=== PATIENT | male | born 1945 | race Caucasian/White ===

== ENCOUNTER 2017-12-26 10:31 | Inpatient (IN) ==
[2017-12-26] MEDS ORDERED: DEXTROSE 50% 25 GM/50 ML SYRINGE IV ONE (14:19)
[2017-12-26] MEDS ORDERED: DEXTROSE 5% NACL 0.45% 1,000 ML IV SCH (14:30)
[2017-12-26 14:34] LABS: Basophils % 0.5 % (0.0-0.8); Eosinophils # 0.2 10*3/uL (0.0-0.87); Eosinophils % 2.6 % (0.00-10.9); Hematocrit 30.4 VOL% (42.0-52.0); Hemoglobin 8.8 GM/DL (14.0-18.0); Immature Granulocytes % 0.3 %; Immature Granulocytes Absolute 0.03 #; Lymphocytes # 0.9 10*3/uL (1.4-4.0); Lymphocytes % 10.9 % (21.2-54.2); Mean Corpuscular HGB Conc 28.9 GM/DL (32-36); Mean Corpuscular Hemoglobin 21 PG (27-34); Mean Platelet Volume 10.1 FL (9.6-12.0); Monocytes # 0.9 10*3/uL (0.11-0.8); Monocytes % 10.6 % (1.7-12.7); Neutrophils # 6.5 10*3/uL (1.4-7.4); Neutrophils % 75.1 % (38.7-73.9); Platelet Count 367 T/CUMM (130-400); Red Blood Count 4.11 MC/CUMM (3.8-5.5); Red Cell Distribution Width 17.2 % (9.3-17.3); White Blood Count 8.6 T/CUMM (4-12)
[2017-12-26 14:40] LABS: INR 1.2; PT Patient Result 12.6 SECS
[2017-12-26 14:53] LABS: Alanine Aminotransferase 20 U/L (16-61); Albumin 3.5 G/DL (3.4-5.0); Alkaline Phosphatase 77 U/L (45-117); Aspartate Amino Transferase 15 U/L (0-37); Blood Urea Nitrogen 40 MG/DL (7-18); Calcium 9.4 MG/DL (8.5-10.1); Glucose 61 MG/DL (74-106); Osmolality,Calculated 293.8 MOS/KG (273-304); Potassium 4.2 MMOL/L (3.5-5.1); Sodium 144 MMOL/L (136-145); Total Protein 7.1 G/DL (6.4-8.3)
[2017-12-26 14:55] LABS: Lactic Acid 7.1 MMOL/L (0.4-2.0)
[2017-12-26] MEDS ORDERED: VANCOMYCIN INJ 1,000 MG in SODIUM CHLORIDE 0.9% 250 ML IV STA (15:03)
[2017-12-26] MEDS ORDERED: VANCOMYCIN 1,000 MG VIAL ONE (15:21)
[2017-12-26 17:03] LABS: Sedimentation Rate-Westergren 25 MM/HR (0-20)
[2017-12-26] MEDS ORDERED: ONDANSETRON 4 MG/2 ML VIAL IV PRN (17:18)
[2017-12-26] MEDS ORDERED: DEXTROSE 50% 25 GM/50 ML VIAL IV PRN (17:18)
[2017-12-26] MEDS ORDERED: GLUCAGON 1 MG VIAL IM PRN (17:18)
[2017-12-26] MEDS: INSULIN REGULAR 100 UNIT/ML SUBCUT SCH ×2 (19:33→23:13)
[2017-12-26 19:39] LABS: Thyroid Stimulating Hormone 3.13 uIU/ml (0.358-3.74)
[2017-12-26] MEDS: SODIUM CHLORIDE 0.9% 1,000 ML IV SCH (20:37)
[2017-12-26] MEDS: VANCOMYCIN INJ 1,250 MG in SODIUM CHLORIDE 0.9% 250 ML IV SCH (20:39)
[2017-12-26] MEDS: NEBIVOLOL 5 MG TABLET PO SCH (20:44)
[2017-12-26] MEDS ORDERED: ENOXAPARIN 30 MG/0.3 ML SYRINGE SUBCUT SCH (21:00)
[2017-12-26 22:45] LABS: Amorphous Crystals,Urine Occasional /HPF (Few); Apearance,Urine CLOUDY (Clear); Bilirubin,Urine Negative (Negative); Glucose,Urine (UA) 50 mg/dL (Negative); Ketones,Urine Negative (Negative); Nitrite,Urine Negative (Negative); Protein,Urine 100 MG/DL; RBC,Urine 3472 /HPF (0-4); Urine Urobilinogen < 2.0 EU/DL (0.2-1.0); WBC,Urine 175 /HPF (0-6)
[2017-12-26 22:46] LABS: Blood, Urine MANY mg/dL (Negative); Urine Color Brown (Yellow)
[2017-12-26] MEDS: PIPERACILLIN/TAZOBACTAM 3.375 MG in SODIUM CHLORIDE 0.9% 100 ML IV SCH (22:55)
[2017-12-27] MEDS: MORPHINE 2 MG/1 ML SYRINGE IV PRN (00:04)
[2017-12-27] MEDS: PIPERACILLIN/TAZOBACTAM 3.375 MG in SODIUM CHLORIDE 0.9% 100 ML IV SCH ×3 (05:13→23:33)
[2017-12-27] MEDS: INSULIN REGULAR 100 UNIT/ML SUBCUT SCH ×3 (05:13→17:14)
[2017-12-27 05:56] LABS: Basophils % 0.4 % (0.0-0.8); Eosinophils # 0.5 10*3/uL (0.0-0.87); Eosinophils % 6.4 % (0.00-10.9); Hematocrit 26.8 VOL% (42.0-52.0); Hemoglobin 7.9 GM/DL (14.0-18.0); Immature Granulocytes % 0.4 %; Immature Granulocytes Absolute 0.03 #; Lymphocytes # 0.5 10*3/uL (1.4-4.0); Lymphocytes % 6.9 % (21.2-54.2); Mean Corpuscular HGB Conc 29.5 GM/DL (32-36); Mean Corpuscular Hemoglobin 21 PG (27-34); Mean Corpuscular Volume 72.6 FL (87-102); Mean Platelet Volume 10.3 FL (9.6-12.0); Monocytes # 0.9 10*3/uL (0.11-0.8); Monocytes % 12.1 % (1.7-12.7); Neutrophils # 5.4 10*3/uL (1.4-7.4); Neutrophils % 73.8 % (38.7-73.9); Platelet Count 314 T/CUMM (130-400); Red Blood Count 3.69 MC/CUMM (3.8-5.5); White Blood Count 7.3 T/CUMM (4-12)
[2017-12-27 06:27] LABS: Albumin 2.9 G/DL (3.4-5.0); Bilirubin,Total 1.1 MG/DL (0.2-1.0); Calcium 8.2 MG/DL (8.5-10.1); Osmolality,Calculated 289.1 MOS/KG (273-304); Potassium 3.8 MMOL/L (3.5-5.1); Total Protein 5.9 G/DL (6.4-8.3)
[2017-12-27 06:35] LABS: Risk Ratio 2.72; VLDL CHOLESTEROL 15.6 MG/DL
[2017-12-27] MEDS ORDERED: LIDOCAINE 1% 5 ML VIAL ONE (08:53)
[2017-12-27] MEDS: VANCOMYCIN INJ 1,250 MG in SODIUM CHLORIDE 0.9% 250 ML IV SCH ×2 (09:10→21:52)
[2017-12-27] MEDS ORDERED: FAMOTIDINE 20 MG/2 ML VIAL IV ONE ×2 (09:33→09:45)
[2017-12-27] MEDS ORDERED: DEXTROSE 50% 25 GM/50 ML VIAL IV PRN (10:21)
[2017-12-27] MEDS ORDERED: GLUCAGON 1 MG VIAL IM PRN (10:21)
[2017-12-27] MEDS ORDERED: fentaNYL 100 MCG/2 ML VIAL ONE (10:34)
[2017-12-27] MEDS ORDERED: ONDANSETRON 4 MG/2 ML VIAL ONE (10:34)
[2017-12-27] MEDS ORDERED: SODIUM CHLORIDE 0.9% 100 ML IV ONE (10:34)
[2017-12-27] MEDS ORDERED: MIDAZOLAM 2 MG/2 ML VIAL ONE (10:34)
[2017-12-27] MEDS ORDERED: PROPOFOL 200 MG/20 ML VIAL IV ONE (10:34)
[2017-12-27] MEDS ORDERED: ENOXAPARIN 40 MG/0.4 ML SYRINGE SUBCUT SCH (11:00)
[2017-12-27] MEDS ORDERED: SODIUM CHLORIDE 0.9% 1,000 ML IV PRN (11:55)
[2017-12-27] MEDS: SODIUM CHLORIDE 0.9% 1,000 ML IV SCH (15:19)
[2017-12-27] MEDS: NEBIVOLOL 5 MG TABLET PO SCH (21:04)
[2017-12-27] MEDS: ENOXAPARIN 40 MG/0.4 ML SYRINGE SUBCUT SCH (21:04)
[2017-12-27] MEDS: PIPERACILLIN/TAZOBACTAM 3,375 MG in SODIUM CHLORIDE 0.9% 100 ML IV SCH (23:59)
[2017-12-28] MEDS: MORPHINE 2 MG/1 ML SYRINGE IV PRN (00:50)
[2017-12-28] MEDS: INSULIN REGULAR 100 UNIT/ML SUBCUT SCH ×4 (00:51→17:12)
[2017-12-28 05:14] LABS: Basophils % 0.6 % (0.0-0.8); Eosinophils # 0.6 10*3/uL (0.0-0.87); Eosinophils % 9.7 % (0.00-10.9); Hematocrit 31.1 VOL% (42.0-52.0); Hemoglobin 9.4 GM/DL (14.0-18.0); Immature Granulocytes % 0.3 %; Immature Granulocytes Absolute 0.02 #; Lymphocytes # 0.6 10*3/uL (1.4-4.0); Mean Corpuscular HGB Conc 30.2 GM/DL (32-36); Mean Corpuscular Hemoglobin 23 PG (27-34); Mean Corpuscular Volume 75.5 FL (87-102); Mean Platelet Volume 10.6 FL (9.6-12.0); Monocytes # 0.9 10*3/uL (0.11-0.8); Monocytes % 14.3 % (1.7-12.7); Neutrophils # 4.1 10*3/uL (1.4-7.4); Neutrophils % 65.1 % (38.7-73.9); Platelet Count 263 T/CUMM (130-400); Red Blood Count 4.12 MC/CUMM (3.8-5.5); Red Cell Distribution Width 17.8 % (9.3-17.3); White Blood Count 6.3 T/CUMM (4-12)
[2017-12-28 05:42] LABS: Calcium 7.8 MG/DL (8.5-10.1); Osmolality,Calculated 291.1 MOS/KG (273-304); Potassium 4.4 MMOL/L (3.5-5.1)
[2017-12-28] MEDS: SODIUM CHLORIDE 0.9% 1,000 ML IV SCH ×3 (06:08→17:41)
[2017-12-28] MEDS: PIPERACILLIN/TAZOBACTAM 3,375 MG in SODIUM CHLORIDE 0.9% 100 ML IV SCH ×3 (07:03→23:32)
[2017-12-28] MEDS: VANCOMYCIN INJ 1,250 MG in SODIUM CHLORIDE 0.9% 250 ML IV SCH ×2 (11:16→21:22)
[2017-12-28] MEDS ORDERED: CHLORHEXIDINE 4% SOLN 118 ML BOTTLE TOP ONE (13:19)
[2017-12-28] MEDS: SODIUM HYPOCHLORITE 0.25% IRRIG 473 ML BOTTLE TOP SCH (15:35)
[2017-12-28] MEDS: NEBIVOLOL 5 MG TABLET PO SCH (21:22)
[2017-12-28] MEDS: ENOXAPARIN 40 MG/0.4 ML SYRINGE SUBCUT SCH (21:22)
[2017-12-29] MEDS: INSULIN REGULAR 100 UNIT/ML SUBCUT SCH ×4 (00:15→17:26)
[2017-12-29 05:19] LABS: Basophils % 0.5 % (0.0-0.8); Eosinophils # 0.6 10*3/uL (0.0-0.87); Eosinophils % 9.3 % (0.00-10.9); Hematocrit 34.1 VOL% (42.0-52.0); Hemoglobin 10.6 GM/DL (14.0-18.0); Immature Granulocytes % 0.5 %; Immature Granulocytes Absolute 0.03 #; Lymphocytes # 0.7 10*3/uL (1.4-4.0); Lymphocytes % 11.3 % (21.2-54.2); Mean Corpuscular HGB Conc 31.1 GM/DL (32-36); Mean Corpuscular Hemoglobin 23 PG (27-34); Mean Corpuscular Volume 73.7 FL (87-102); Mean Platelet Volume 10.2 FL (9.6-12.0); Monocytes % 15.6 % (1.7-12.7); Neutrophils # 4.1 10*3/uL (1.4-7.4); Neutrophils % 62.8 % (38.7-73.9); Platelet Count 286 T/CUMM (130-400); Red Blood Count 4.63 MC/CUMM (3.8-5.5); Red Cell Distribution Width 18.2 % (9.3-17.3); White Blood Count 6.5 T/CUMM (4-12)
[2017-12-29] MEDS: SODIUM CHLORIDE 0.9% 1,000 ML IV SCH ×2 (05:40→06:02)
[2017-12-29 05:52] LABS: Calcium 8.3 MG/DL (8.5-10.1); Potassium 4.3 MMOL/L (3.5-5.1)
[2017-12-29 06:03] LABS: Band Neutrophils 1 % (0-10); Eosinophils 5 % (0-10); Lymphocytes 16 % (20-55); Platelet Estimate Normal; Segmented Neutrophils 73 % (50-85); Total Cells Counted 100
[2017-12-29 06:04] LABS: Microcytosis 1+; Polychromasia Slight
[2017-12-29] MEDS ORDERED: SKIN HEALING OINT (AQUAPHOR) 50 GM TUBE TOP PRN (08:57)
[2017-12-29] MEDS: PIPERACILLIN/TAZOBACTAM 3,375 MG in SODIUM CHLORIDE 0.9% 100 ML IV SCH (09:14)
[2017-12-29] MEDS ORDERED: VANCOMYCIN INJ 1,250 MG in SODIUM CHLORIDE 0.9% 250 ML IV SCH (10:00)
[2017-12-29] MEDS: SODIUM HYPOCHLORITE 0.25% IRRIG 473 ML BOTTLE TOP SCH (11:21)
[2017-12-29] MEDS: ENOXAPARIN 40 MG/0.4 ML SYRINGE SUBCUT SCH (21:16)
[2017-12-29] MEDS: NEBIVOLOL 5 MG TABLET PO SCH (21:16)
[2017-12-29] MEDS: SULFAMETHOX/TRIMETHOPRIM 800-160 MG TABLET PO SCH (21:16)
[2017-12-30] MEDS: INSULIN REGULAR 100 UNIT/ML SUBCUT SCH ×3 (00:31→12:08)
[2017-12-30 06:18] LABS: Basophils % 0.5 % (0.0-0.8); Eosinophils # 0.6 10*3/uL (0.0-0.87); Eosinophils % 8.8 % (0.00-10.9); Hematocrit 32.1 VOL% (42.0-52.0); Hemoglobin 9.5 GM/DL (14.0-18.0); Immature Granulocytes % 0.3 %; Immature Granulocytes Absolute 0.02 #; Lymphocytes # 0.7 10*3/uL (1.4-4.0); Lymphocytes % 10.8 % (21.2-54.2); Mean Corpuscular HGB Conc 29.6 GM/DL (32-36); Mean Corpuscular Hemoglobin 22 PG (27-34); Mean Corpuscular Volume 75.7 FL (87-102); Monocytes # 1.1 10*3/uL (0.11-0.8); Monocytes % 16.9 % (1.7-12.7); Neutrophils % 62.7 % (38.7-73.9); Platelet Count 249 T/CUMM (130-400); Red Blood Count 4.24 MC/CUMM (3.8-5.5); Red Cell Distribution Width 18.4 % (9.3-17.3); White Blood Count 6.4 T/CUMM (4-12)
[2017-12-30 06:44] LABS: Band Neutrophils 5 % (0-10); Eosinophils 10 % (0-10); Lymphocytes 6 % (20-55); Metamyelocytes 1 %; Segmented Neutrophils 70 % (50-85); Total Cells Counted 100
[2017-12-30 06:47] LABS: Anisocytosis 1+
[2017-12-30 06:48] LABS: Acanthocytes 1+
[2017-12-30 06:49] LABS: Calcium 8.3 MG/DL (8.5-10.1); Hypochromasia 1+; Osmolality,Calculated 290.8 MOS/KG (273-304); Ovalocytes 2+; Platelet Estimate Normal; Potassium 3.7 MMOL/L (3.5-5.1)
[2017-12-30 07:45] VITALS: BP 142/84
[2017-12-30] MEDS: SULFAMETHOX/TRIMETHOPRIM 800-160 MG TABLET PO SCH (10:05)
[2017-12-30] MEDS: SODIUM HYPOCHLORITE 0.25% IRRIG 473 ML BOTTLE TOP SCH (10:05)
== END 2017-12-30 13:49 | disposition home health service (06) | DRG 264 ==
LOC: N.ED 10:31 → N.EDINP 15:30 → SUATTDRO 15:30 → N.EDINP 16:45 → N.3E 17:00
PROVIDERS: ADMIT Internal Medicine

== ENCOUNTER 2019-12-23 14:39 | Inpatient (IN) ==
[2019-12-23 15:15] LABS: Immature Granulocytes % 0.3 %; Immature Granulocytes Absolute 0.02 #
[2019-12-23 15:28] LABS: Basophils % 0.6 % (0.0-0.8); Eosinophils # 0.2 10*3/uL (0.0-0.87); Eosinophils % 2.7 % (0.00-10.9); Hematocrit 31.5 VOL% (42.0-52.0); Hemoglobin 8.8 GM/DL (14.0-18.0); Lymphocytes # 0.6 10*3/uL (1.4-4.0); Mean Corpuscular HGB Conc 27.9 GM/DL (32-36); Mean Platelet Volume 11.1 FL (9.6-12.0); Monocytes % 11.1 % (1.7-12.7); Neutrophils % 76.3 % (38.7-73.9); Platelet Count 284 T/CUMM (130-400); Red Cell Distribution Width 18.4 % (9.3-17.3); White Blood Count 6.3 T/CUMM (4-12)
[2019-12-23 15:29] LABS: Albumin 3.8 G/DL (3.4-5.0); Bilirubin,Total 0.6 MG/DL (0.2-1.0); Calcium 8.8 MG/DL (8.5-10.1); Osmolality,Calculated 286.7 MOS/KG (273-304); Total Protein 7.3 G/DL (6.4-8.3)
[2019-12-23 16:10] LABS: Sickle Cells Slight
[2019-12-23 16:11] LABS: Anisocytosis 3+; Burr Cells Slight; Hypochromasia 1+
[2019-12-23 16:27] LABS: INR 1.1; PT Patient Result 12.4 SECS (9.6-12.2); Partial Thromboplastin Time 26.2 SECS (20.8-36.0)
[2019-12-23] MEDS ORDERED: ASPIRIN 325 MG TABLET PO STA (18:32)
[2019-12-23] MEDS ORDERED: ALBUTEROL/IPRATROPIUM 3 ML NEB RESP TX STA (18:32)
[2019-12-23] MEDS ORDERED: ONDANSETRON 4 MG/2 ML VIAL IV STA (18:32)
[2019-12-23] MEDS ORDERED: MORPHINE 4 MG/1 ML VIAL IV STA (18:32)
[2019-12-23] MEDS ORDERED: FUROSEMIDE 100 MG/10 ML VIAL IV STA (18:32)
[2019-12-23] MEDS ORDERED: NITROGLYCERIN 2% OINT 1 INCH/GM PACK TOP STA (18:32)
[2019-12-23] MEDS ORDERED: ONDANSETRON 4 MG/2 ML VIAL IV PRN (19:16)
[2019-12-23] MEDS ORDERED: DOCUSATE SODIUM 100 MG CAPSULE PO PRN (19:16)
[2019-12-23] MEDS ORDERED: DEXTROSE 10% 250 ML BAG IV PRN (19:20)
[2019-12-23] MEDS ORDERED: GLUCAGON 1 MG VIAL IM PRN (19:20)
[2019-12-23 19:25] LABS: Apearance,Urine Slightly Hazy (Clear); Bacteria,Urine Occasional /HPF (Few); Bilirubin,Urine Negative (Negative); Blood, Urine Large mg/dL (Negative); Glucose,Urine (UA) Negative (Negative); Ketones,Urine Negative (Negative); Mucus,Urine Occasional /LPF (Occasional); Nitrite,Urine Negative (Negative); Protein,Urine 30 MG/DL; RBC,Urine 709 /HPF (0-4); Squamous Epithelial Cell,Urine Occasional /HPF (0-10); Urine Color Yellow (Yellow); Urine Specific Gravity 1.016 (1.001-1.035); Urine Urobilinogen < 2.0 EU/DL (0.2-1.0); WBC,Urine 3 /HPF (0-6)
[2019-12-23 19:40] LABS: Barbiturates Screen,Urine Negative (Negative); Benzodiazepines Screen,Urine Negative (Negative); Cannabinoid Screen,Urine Negative (Negative); Opiate Screen,Urine Negative (Negative); Phencyclidine Screen,Urine Negative (Negative)
[2019-12-23] MEDS ORDERED: ENOXAPARIN 40 MG/0.4 ML SYRINGE SUBCUT SCH (21:00)
[2019-12-23] MEDS: INSULIN REGULAR 100 UNIT/ML SUBCUT SCH (22:01)
[2019-12-23 22:44] LABS: INR 1.2; PT Patient Result 12.8 SECS (9.6-12.2)
[2019-12-23] MEDS: POTASSIUM CHLORIDE 20 MEQ TABLET PO SCH (23:25)
[2019-12-23] MEDS: FUROSEMIDE 40 MG/4 ML VIAL IV SCH (23:27)
[2019-12-24] MEDS ORDERED: PNEUMOCOCCAL VACCINE (13 VALENT) 0.5 ML SYRINGE IM ONE (02:07)
[2019-12-24] MEDS ORDERED: IBUPROFEN 400 MG TABLET PO PRN (02:19)
[2019-12-24 05:43] LABS: Basophils # 0.1 10*3/uL (0.0-0.2); Basophils % 1.9 % (0.0-0.8); Eosinophils # 0.3 10*3/uL (0.0-0.87); Eosinophils % 5.6 % (0.00-10.9); Hematocrit 28.9 VOL% (42.0-52.0); Hemoglobin 8.1 GM/DL (14.0-18.0); Immature Granulocytes % 0.4 %; Immature Granulocytes Absolute 0.02 #; Lymphocytes # 0.6 10*3/uL (1.4-4.0); Lymphocytes % 11.2 % (21.2-54.2); Mean Corpuscular Volume 69.6 FL (87-102); Mean Platelet Volume 10.8 FL (9.6-12.0); Monocytes % 14.7 % (1.7-12.7); Neutrophils % 66.2 % (38.7-73.9); Platelet Count 248 T/CUMM (130-400); Red Blood Count 4.15 MC/CUMM (3.8-5.5); Red Cell Distribution Width 18.2 % (9.3-17.3); White Blood Count 5.7 T/CUMM (4-12)
[2019-12-24] MEDS: HYDROCORTISONE 1% CREAM 28 GM TUBE TOP PRN ×2 (05:45→22:54)
[2019-12-24 05:46] LABS: Calcium 8.5 MG/DL (8.5-10.1); Osmolality,Calculated 292.4 MOS/KG (273-304); Thyroid Stimulating Hormone 1.91 uIU/ml (0.358-3.74)
[2019-12-24 05:50] LABS: % Iron Saturation 3.3 % (18-50); Ferritin 5.4 ng/ml (26-388)
[2019-12-24 05:54] LABS: Elliptocytes Few; Hypochromasia 1+; Platelet Estimate Adequate
[2019-12-24 06:15] LABS: Folate 10.5 NG/ML (5.4-24.0)
[2019-12-24 06:15] LABS: Sedimentation Rate-Westergren 6 MM/HR (0-20)
[2019-12-24 07:50] LABS: Vitamin B12 465 PG/ML (211-911)
[2019-12-24] MEDS ORDERED: SERTRALINE 25 MG TABLET PO ONE (09:00)
[2019-12-24] MEDS: INSULIN REGULAR 100 UNIT/ML SUBCUT SCH ×4 (09:24→23:00)
[2019-12-24] MEDS: DILTIAZEM CD 180 MG CAPSULE PO SCH (09:24)
[2019-12-24] MEDS: POTASSIUM CHLORIDE 20 MEQ TABLET PO SCH ×2 (09:25→22:45)
[2019-12-24] MEDS: ASPIRIN EC 325 MG TABLET PO SCH (09:25)
[2019-12-24] MEDS: FUROSEMIDE 40 MG/4 ML VIAL IV SCH ×2 (09:25→22:46)
[2019-12-24] MEDS: NITROGLYCERIN 0.2 MG/HR PATCH TRANSDERM SCH (09:26)
[2019-12-24 10:15] LABS: Hemoglobin A1 (Alkaline) 98.1 % (96.5-98.5); Hemoglobin A2 (Alkaline) 1.9 % (1.5-3.5)
[2019-12-24 12:42] LABS: INR 1.2; PT Patient Result 13.2 SECS (9.6-12.2); Partial Thromboplastin Time 27.5 SECS (20.8-36.0)
[2019-12-24] MEDS: HEPARIN DRIP 25,000 UNITS/500 ML PREMIX IV SCH (13:00)
[2019-12-24] MEDS ORDERED: GLUCAGON 1 MG VIAL IM PRN (13:26)
[2019-12-24] MEDS ORDERED: DEXTROSE 50% 25 GM/50 ML VIAL IV PRN (13:26)
[2019-12-24 20:02] LABS: INR 1.2; PT Patient Result 13.3 SECS (9.6-12.2); Partial Thromboplastin Time 39.5 SECS (20.8-36.0)
[2019-12-24] MEDS ORDERED: HEPARIN 5,000 UNIT/1 ML VIAL IV ONE (20:21)
[2019-12-24] MEDS: SERTRALINE 25 MG TABLET PO SCH (22:42)
[2019-12-24] MEDS: FERROUS SULFATE ER 140 MG TABLET PO SCH (22:42)
[2019-12-24] MEDS: ACETYLCYSTEINE 600 MG CAPSULE PO SCH (22:43)
[2019-12-25 05:05] LABS: Calcium 8.5 MG/DL (8.5-10.1); Osmolality,Calculated 288.3 MOS/KG (273-304)
[2019-12-25 05:41] LABS: Basophils # 0.1 10*3/uL (0.0-0.2); Basophils % 1.5 % (0.0-0.8); Eosinophils # 0.3 10*3/uL (0.0-0.87); Hematocrit 28.5 VOL% (42.0-52.0); Immature Granulocytes % 0.6 %; Immature Granulocytes Absolute 0.03 #; Lymphocytes # 0.7 10*3/uL (1.4-4.0); Lymphocytes % 13.6 % (21.2-54.2); Mean Corpuscular HGB Conc 28.4 GM/DL (32-36); Mean Corpuscular Volume 68.3 FL (87-102); Mean Platelet Volume 10.6 FL (9.6-12.0); Monocytes % 14.4 % (1.7-12.7); Neutrophils % 63.9 % (38.7-73.9); Platelet Count 241 T/CUMM (130-400); Red Blood Count 4.17 MC/CUMM (3.8-5.5); Red Cell Distribution Width 18.2 % (9.3-17.3); White Blood Count 5.3 T/CUMM (4-12)
[2019-12-25 05:45] LABS: Hemoglobin 8.1 GM/DL (14.0-18.0)
[2019-12-25 05:50] LABS: Hypochromasia 1+; Ovalocytes Slight; Platelet Estimate Adequate
[2019-12-25] MEDS: INSULIN REGULAR 100 UNIT/ML SUBCUT SCH ×4 (08:40→22:35)
[2019-12-25] MEDS: NITROGLYCERIN 0.2 MG/HR PATCH TRANSDERM SCH (08:44)
[2019-12-25] MEDS: FERROUS SULFATE ER 140 MG TABLET PO SCH ×2 (08:44→21:17)
[2019-12-25] MEDS: ACETYLCYSTEINE 600 MG CAPSULE PO SCH ×2 (08:46→21:18)
[2019-12-25] MEDS: DILTIAZEM CD 180 MG CAPSULE PO SCH (08:46)
[2019-12-25] MEDS: POTASSIUM CHLORIDE 20 MEQ TABLET PO SCH ×2 (08:47→21:18)
[2019-12-25] MEDS: ASPIRIN EC 325 MG TABLET PO SCH (08:47)
[2019-12-25] MEDS: FUROSEMIDE 40 MG/4 ML VIAL IV SCH ×2 (09:55→21:19)
[2019-12-25] MEDS ORDERED: MAGNESIUM SULF RIDER 2 GM in PREMIX 1 EACH IV ONE (11:07)
[2019-12-25] MEDS ORDERED: POTASSIUM CHLORIDE 20 MEQ TABLET PO ONE (11:07)
[2019-12-25 11:41] LABS: INR 1.2; PT Patient Result 12.6 SECS (9.6-12.2); Partial Thromboplastin Time 32.6 SECS (20.8-36.0)
[2019-12-25] MEDS ORDERED: SKIN HEALING OINT (AQUAPHOR) 50 GM TUBE TOP PRN (11:50)
[2019-12-25] MEDS ORDERED: POTASSIUM CHLORIDE 20 MEQ TABLET PO PRN (11:54)
[2019-12-25] MEDS ORDERED: MAGNESIUM SULF RIDER 2 GM in PREMIX 1 EACH IV PRN (11:54)
[2019-12-25] MEDS ORDERED: MAGNESIUM SULF RIDER 4 GM in PREMIX 1 EACH IV PRN (11:54)
[2019-12-25] MEDS: carvediloL 6.25 MG TABLET PO SCH ×2 (13:10→17:43)
[2019-12-25] MEDS: HEPARIN DRIP 25,000 UNITS/500 ML PREMIX IV SCH (14:56)
[2019-12-25] MEDS: SERTRALINE 25 MG TABLET PO SCH (21:18)
[2019-12-26 04:56] LABS: Basophils # 0.1 10*3/uL (0.0-0.2); Basophils % 0.9 % (0.0-0.8); Eosinophils # 0.3 10*3/uL (0.0-0.87); Eosinophils % 6.3 % (0.00-10.9); Hematocrit 27.7 VOL% (42.0-52.0); Immature Granulocytes % 0.4 %; Immature Granulocytes Absolute 0.02 #; Lymphocytes # 0.8 10*3/uL (1.4-4.0); Lymphocytes % 13.8 % (21.2-54.2); Mean Corpuscular HGB Conc 28.2 GM/DL (32-36); Mean Corpuscular Volume 68.6 FL (87-102); Mean Platelet Volume 11.1 FL (9.6-12.0); Monocytes % 14.6 % (1.7-12.7); Platelet Count 248 T/CUMM (130-400); Red Blood Count 4.04 MC/CUMM (3.8-5.5); Red Cell Distribution Width 18.2 % (9.3-17.3); White Blood Count 5.4 T/CUMM (4-12)
[2019-12-26 05:19] LABS: Calcium 8.4 MG/DL (8.5-10.1); Osmolality,Calculated 288.8 MOS/KG (273-304)
[2019-12-26 05:22] LABS: Hypochromasia 1+
[2019-12-26 05:23] LABS: Ovalocytes Slight; Platelet Estimate Adequate
[2019-12-26 05:37] LABS: Risk Ratio 2.59; VLDL CHOLESTEROL 10.6 MG/DL
[2019-12-26] MEDS: INSULIN REGULAR 100 UNIT/ML SUBCUT SCH ×4 (08:26→20:31)
[2019-12-26] MEDS: ASPIRIN EC 325 MG TABLET PO SCH (08:32)
[2019-12-26] MEDS: carvediloL 6.25 MG TABLET PO SCH ×2 (08:32→16:51)
[2019-12-26] MEDS: POTASSIUM CHLORIDE 20 MEQ TABLET PO SCH ×2 (08:33→20:31)
[2019-12-26] MEDS: NITROGLYCERIN 0.2 MG/HR PATCH TRANSDERM SCH (08:33)
[2019-12-26] MEDS: ACETYLCYSTEINE 600 MG CAPSULE PO SCH ×2 (08:33→20:34)
[2019-12-26] MEDS: FERROUS SULFATE ER 140 MG TABLET PO SCH ×2 (08:34→20:31)
[2019-12-26] MEDS: FUROSEMIDE 40 MG/4 ML VIAL IV SCH ×2 (08:36→20:34)
[2019-12-26] MEDS ORDERED: diphenhydrAMINE CAP 25 MG CAPSULE PO ONE (09:00)
[2019-12-26] MEDS ORDERED: DIAZEPAM 5 MG TABLET PO ONE (09:00)
[2019-12-26] MEDS ORDERED: HEPARIN/NACL 0.9% 2 UNITS/ML 1,500 ML IV ONE (10:24)
[2019-12-26] MEDS ORDERED: LIDOCAINE 1% 20 ML VIAL ONE (10:24)
[2019-12-26] MEDS: HEPARIN DRIP 25,000 UNITS/500 ML PREMIX IV SCH (12:00)
[2019-12-26] MEDS ORDERED: fentaNYL 100 MCG/2 ML VIAL ONE (12:09)
[2019-12-26] MEDS ORDERED: MIDAZOLAM 2 MG/2 ML VIAL ONE (12:09)
[2019-12-26] MEDS ORDERED: HEPARIN/NACL 0.9% 2 UNITS/ML 500 ML IV ONE (13:30)
[2019-12-26] MEDS ORDERED: SODIUM CHLORIDE 0.9% 1,000 ML IV SCH (14:00)
[2019-12-26] MEDS ORDERED: POTASSIUM CHLORIDE RIDER 10 MEQ in PREMIX 1 EACH IV PRN (14:37)
[2019-12-26] MEDS ORDERED: MAGNESIUM SULF RIDER 2 GM in PREMIX 1 EACH IV PRN (14:37)
[2019-12-26] MEDS: traMADol 50 MG TABLET PO PRN (14:50)
[2019-12-26] MEDS: SERTRALINE 25 MG TABLET PO SCH (20:31)
[2019-12-27 04:54] LABS: Basophils # 0.1 10*3/uL (0.0-0.2); Basophils % 1.2 % (0.0-0.8); Eosinophils # 0.3 10*3/uL (0.0-0.87); Eosinophils % 5.5 % (0.00-10.9); Hematocrit 27.7 VOL% (42.0-52.0); Immature Granulocytes % 0.4 %; Immature Granulocytes Absolute 0.02 #; Lymphocytes # 0.5 10*3/uL (1.4-4.0); Lymphocytes % 10.2 % (21.2-54.2); Mean Corpuscular HGB Conc 27.4 GM/DL (32-36); Mean Corpuscular Volume 69.6 FL (87-102); Mean Platelet Volume 11.1 FL (9.6-12.0); Monocytes % 16.4 % (1.7-12.7); Neutrophils % 66.3 % (38.7-73.9); Platelet Count 225 T/CUMM (130-400); Red Blood Count 3.98 MC/CUMM (3.8-5.5); Red Cell Distribution Width 18.4 % (9.3-17.3); White Blood Count 4.9 T/CUMM (4-12)
[2019-12-27 05:35] LABS: Hemoglobin 7.8 GM/DL (14.0-18.0)
[2019-12-27 05:46] LABS: Calcium 8.2 MG/DL (8.5-10.1); Osmolality,Calculated 291.5 MOS/KG (273-304)
[2019-12-27 05:49] LABS: Eosinophils 5 % (0-10); Hypochromasia 1+; Lymphocytes 9 % (20-55); Platelet Estimate Adequate; Segmented Neutrophils 70 % (50-85); Total Cells Counted 100
[2019-12-27 05:50] LABS: Elliptocytes Few
[2019-12-27] MEDS ORDERED: diphenhydrAMINE CAP 25 MG CAPSULE PO ONE (06:30)
[2019-12-27] MEDS ORDERED: DIAZEPAM 5 MG TABLET PO ONE (06:30)
[2019-12-27] MEDS ORDERED: SODIUM CHLORIDE 0.9% 1,000 ML IV PRN (08:32)
[2019-12-27] MEDS ORDERED: IRON SUCROSE 300 MG in SODIUM CHLORIDE 0.9% 100 ML IV ONE (09:04)
[2019-12-27] MEDS: INSULIN REGULAR 100 UNIT/ML SUBCUT SCH ×4 (10:21→22:00)
[2019-12-27] MEDS: FUROSEMIDE 40 MG/4 ML VIAL IV SCH ×2 (10:58→21:55)
[2019-12-27] MEDS ORDERED: LIDOCAINE 1% 20 ML VIAL ONE (13:02)
[2019-12-27] MEDS ORDERED: HEPARIN/NACL 0.9% 2 UNITS/ML 1,500 ML IV ONE (13:02)
[2019-12-27] MEDS ORDERED: DIAZEPAM 5 MG TABLET ONE (13:33)
[2019-12-27] MEDS ORDERED: diphenhydrAMINE CAP 50 MG CAPSULE ONE (13:33)
[2019-12-27] MEDS: NITROGLYCERIN 0.2 MG/HR PATCH TRANSDERM SCH (13:42)
[2019-12-27] MEDS: carvediloL 6.25 MG TABLET PO SCH ×2 (13:42→21:59)
[2019-12-27] MEDS: POTASSIUM CHLORIDE 20 MEQ TABLET PO SCH ×2 (13:42→21:59)
[2019-12-27] MEDS: ACETYLCYSTEINE 600 MG CAPSULE PO SCH ×2 (13:42→21:59)
[2019-12-27] MEDS: ASPIRIN EC 325 MG TABLET PO SCH (13:42)
[2019-12-27] MEDS: FERROUS SULFATE ER 140 MG TABLET PO SCH ×2 (13:42→21:59)
[2019-12-27] MEDS ORDERED: NITROGLYCERIN DRIP 50 MG/250 ML BOTTLE IV ONE (14:10)
[2019-12-27] MEDS ORDERED: MIDAZOLAM 2 MG/2 ML VIAL ONE (14:11)
[2019-12-27] MEDS ORDERED: HEPARIN 5,000 UNIT/1 ML VIAL ONE ×2 (14:11→14:27)
[2019-12-27] MEDS ORDERED: fentaNYL 100 MCG/2 ML VIAL ONE (14:11)
[2019-12-27 15:01] LABS: Hematocrit 31.7 VOL% (42.0-52.0)
[2019-12-27 15:04] LABS: Hemoglobin 9.1 GM/DL (14.0-18.0)
[2019-12-27] MEDS ORDERED: EPTIFIBATIDE 75 MG/100 ML BOTTLE IV ONE (15:12)
[2019-12-27] MEDS ORDERED: CLOPIDOGREL 300 MG TABLET ONE (15:23)
[2019-12-27] MEDS ORDERED: EPTIFIBATIDE 20,000 MCG/10 ML VIAL ONE (15:31)
[2019-12-27] MEDS ORDERED: SODIUM CHLORIDE 0.9% 1,000 ML IV SCH (16:30)
[2019-12-27] MEDS: SERTRALINE 25 MG TABLET PO SCH (21:59)
[2019-12-27] MEDS: traMADol 50 MG TABLET PO PRN (22:30)
[2019-12-28 08:14] VITALS: BP 114/66
[2019-12-28 08:54] LABS: Albumin 3.1 G/DL (3.4-5.0); Osmolality,Calculated 288.4 MOS/KG (273-304)
[2019-12-28 08:58] LABS: Basophils % 0.7 % (0.0-0.8); Eosinophils # 0.4 10*3/uL (0.0-0.87); Eosinophils % 7.2 % (0.00-10.9); Hematocrit 29.9 VOL% (42.0-52.0); Hemoglobin 8.6 GM/DL (14.0-18.0); Immature Granulocytes % 0.5 %; Immature Granulocytes Absolute 0.03 #; Lymphocytes # 0.6 10*3/uL (1.4-4.0); Lymphocytes % 10.9 % (21.2-54.2); Mean Corpuscular HGB Conc 28.8 GM/DL (32-36); Mean Corpuscular Volume 71.2 FL (87-102); Mean Platelet Volume 12.3 FL (9.6-12.0); Monocytes % 18.1 % (1.7-12.7); Neutrophils % 62.6 % (38.7-73.9); Platelet Count 218 T/CUMM (130-400); Red Cell Distribution Width 19.9 % (9.3-17.3); White Blood Count 5.7 T/CUMM (4-12)
[2019-12-28] MEDS ORDERED: CLOPIDOGREL 75 MG TABLET PO SCH (09:00)
[2019-12-28] MEDS ORDERED: ATORVASTATIN 40 MG TABLET PO SCH (09:00)
[2019-12-28] MEDS ORDERED: ASPIRIN EC 81 MG TABLET PO SCH (09:26)
[2019-12-28] MEDS: NITROGLYCERIN 0.2 MG/HR PATCH TRANSDERM SCH (09:48)
[2019-12-28] MEDS: POTASSIUM CHLORIDE 20 MEQ TABLET PO SCH (09:49)
[2019-12-28] MEDS: carvediloL 6.25 MG TABLET PO SCH (09:49)
[2019-12-28] MEDS: FERROUS SULFATE ER 140 MG TABLET PO SCH (09:49)
[2019-12-28] MEDS: ACETYLCYSTEINE 600 MG CAPSULE PO SCH (09:49)
[2019-12-28] MEDS: INSULIN REGULAR 100 UNIT/ML SUBCUT SCH (09:49)
[2019-12-28] MEDS: FUROSEMIDE 40 MG/4 ML VIAL IV SCH (09:50)
[2019-12-28] MEDS ORDERED: APIXABAN 5 MG TABLET PO SCH (09:56)
[2019-12-28 10:05] LABS: Elliptocytes Few; Eosinophils 7 % (0-10); Hypochromasia 4+; Lymphocytes 4 % (20-55); Microcytosis 3+; Ovalocytes Few; Platelet Estimate Normal; Polychromasia Slight; Segmented Neutrophils 68 % (50-85); Total Cells Counted 100
[2019-12-28] MEDS: ASPIRIN EC 325 MG TABLET PO SCH (11:03)
== END 2019-12-28 13:50 | disposition home or self-care (01) | DRG 246 ==
LOC: N.EDINP 14:39 → N.ED 14:39 → N.TELEN 20:50 → SUATTDRO 12-25 11:14
PROVIDERS: ADMIT Emergency Medicine; ATTEND Hospitalist

== ENCOUNTER 2020-01-04 16:15 | Inpatient (IN) ==
[2020-01-04] MEDS ORDERED: hydrALAZINE 20 MG/1 ML VIAL IV PRN (18:47)
[2020-01-04] MEDS ORDERED: ALBUTEROL 2.5 MG/3 ML NEB RESP TX PRN (18:48)
[2020-01-04] MEDS ORDERED: DEXTROSE 10% 250 ML BAG IV PRN (18:50)
[2020-01-04] MEDS ORDERED: GLUCAGON 1 MG VIAL IM PRN (18:50)
[2020-01-04] MEDS ORDERED: FUROSEMIDE 40 MG/4 ML VIAL IV SCH (19:00)
[2020-01-04 19:59] LABS: Calcium 8.7 MG/DL (8.5-10.1)
[2020-01-04 20:01] LABS: Basophils # 0.1 10*3/uL (0.0-0.2); Basophils % 0.4 % (0.0-0.8); Eosinophils % 0.1 % (0.00-10.9); Hematocrit 33.5 VOL% (42.0-52.0); Hemoglobin 9.5 GM/DL (14.0-18.0); Immature Granulocytes Absolute 0.16 #; Lymphocytes # 0.4 10*3/uL (1.4-4.0); Lymphocytes % 2.7 % (21.2-54.2); Mean Corpuscular HGB Conc 28.4 GM/DL (32-36); Mean Corpuscular Volume 74.6 FL (87-102); Monocytes % 5.7 % (1.7-12.7); Neutrophils % 90.1 % (38.7-73.9); Platelet Count 171 T/CUMM (130-400); Red Blood Count 4.49 MC/CUMM (3.8-5.5); Red Cell Distribution Width 24.3 % (9.3-17.3)
[2020-01-04] MEDS: dilTIAZem Drip 125 MG/125 ML PREMIX IV SCH (20:01)
[2020-01-04] MEDS: INSULIN LISPRO 100 UNIT/ML SUBCUT SCH (20:08)
[2020-01-04 20:22] LABS: Acanthocytes 1+; Anisocytosis Slight; Hypochromasia Slight; Lymphocytes 2 % (20-55); Microcytosis Slight; Segmented Neutrophils 95 % (50-85); Target Cells Slight; Total Cells Counted 100
[2020-01-04] MEDS: carvediloL 6.25 MG TABLET PO SCH (20:35)
[2020-01-04] MEDS: APIXABAN 5 MG TABLET PO SCH (20:35)
[2020-01-04] MEDS: POTASSIUM CHLORIDE 20 MEQ TABLET PO SCH (20:35)
[2020-01-04] MEDS ORDERED: MORPHINE 4 MG/1 ML VIAL IV PRN (20:49)
[2020-01-04] MEDS ORDERED: diphenhydrAMINE CAP 25 MG CAPSULE PO PRN (21:58)
[2020-01-04] MEDS ORDERED: DOCUSATE SODIUM 100 MG CAPSULE PO PRN (21:58)
[2020-01-04] MEDS ORDERED: NICOTINE 21 MG/24 HR PATCH TRANSDERM PRN (21:58)
[2020-01-04] MEDS ORDERED: guaiFENesin/DM ER 600-30 MG TABLET PO PRN (21:58)
[2020-01-04] MEDS ORDERED: ONDANSETRON 4 MG/2 ML VIAL IV PRN (21:58)
[2020-01-04] MEDS ORDERED: ZALEPLON 5 MG CAPSULE PO PRN (21:58)
[2020-01-04] MEDS ORDERED: PROMETHAZINE 25 MG TABLET PO PRN (21:58)
[2020-01-04] MEDS: cefTRIAXone 1,000 MG in SYRINGE 1 EACH IV SCH (22:54)
[2020-01-05 02:04] LABS: Apearance,Urine CLEAR (Clear); Bilirubin,Urine Negative (Negative); Blood, Urine Large mg/dL (Negative); Glucose,Urine (UA) Negative (Negative); Hyaline Casts,Urine 3 /LPF (0-3); Ketones,Urine Negative (Negative); Mucus,Urine Occasional /LPF (Occasional); Nitrite,Urine Negative (Negative); Protein,Urine Negative; RBC,Urine 333 /HPF (0-4); Urine Color Yellow (Yellow); Urine Urobilinogen < 2.0 EU/DL (0.2-1.0); WBC,Urine 5 /HPF (0-6)
[2020-01-05 04:49] LABS: Calcium 8.3 MG/DL (8.5-10.1); Osmolality,Calculated 279.8 MOS/KG (273-304)
[2020-01-05 05:01] LABS: Basophils # 0.1 10*3/uL (0.0-0.2); Basophils % 0.6 % (0.0-0.8); Eosinophils # 0.1 10*3/uL (0.0-0.87); Eosinophils % 0.6 % (0.00-10.9); Hematocrit 32.9 VOL% (42.0-52.0); Immature Granulocytes % 0.3 %; Immature Granulocytes Absolute 0.04 #; Lymphocytes # 0.5 10*3/uL (1.4-4.0); Lymphocytes % 4.2 % (21.2-54.2); Mean Corpuscular HGB Conc 28.6 GM/DL (32-36); Mean Corpuscular Volume 73.8 FL (87-102); Monocytes % 8.4 % (1.7-12.7); Neutrophils % 85.9 % (38.7-73.9); Platelet Count 168 T/CUMM (130-400); Red Blood Count 4.46 MC/CUMM (3.8-5.5); Red Cell Distribution Width 24.4 % (9.3-17.3); White Blood Count 11.7 T/CUMM (4-12)
[2020-01-05 05:02] LABS: Hemoglobin 9.4 GM/DL (14.0-18.0)
[2020-01-05 05:23] LABS: Eosinophils 1 % (0-10); Hypochromasia 1+; Lymphocytes 4 % (20-55); Ovalocytes Slight; Platelet Estimate Adequate; Segmented Neutrophils 88 % (50-85); Total Cells Counted 100
[2020-01-05 07:39] LABS: Risk Ratio 2.27
[2020-01-05] MEDS: FUROSEMIDE 40 MG/4 ML VIAL IV SCH ×2 (09:20→16:47)
[2020-01-05] MEDS: INSULIN LISPRO 100 UNIT/ML SUBCUT SCH ×4 (09:34→20:53)
[2020-01-05] MEDS: carvediloL 6.25 MG TABLET PO SCH ×2 (09:36→20:53)
[2020-01-05] MEDS: PANTOPRAZOLE 40 MG TABLET PO SCH (09:36)
[2020-01-05] MEDS: APIXABAN 5 MG TABLET PO SCH ×2 (09:36→20:53)
[2020-01-05] MEDS: ATORVASTATIN 40 MG TABLET PO SCH (09:36)
[2020-01-05] MEDS: POTASSIUM CHLORIDE 20 MEQ TABLET PO SCH ×2 (09:36→20:52)
[2020-01-05] MEDS: AZITHROMYCIN 250 MG TABLET PO SCH (11:44)
[2020-01-05] MEDS: dilTIAZem Drip 125 MG/125 ML PREMIX IV SCH (18:41)
[2020-01-05] MEDS: cefTRIAXone 1,000 MG in SYRINGE 1 EACH IV SCH (20:51)
[2020-01-05] MEDS: FUROSEMIDE 40 MG TABLET PO SCH (20:53)
[2020-01-06 06:13] LABS: Albumin 3.5 G/DL (3.4-5.0); Bilirubin,Total 0.5 MG/DL (0.2-1.0); Calcium 8.5 MG/DL (8.5-10.1); Osmolality,Calculated 293.1 MOS/KG (273-304)
[2020-01-06 06:31] LABS: Basophils # 0.1 10*3/uL (0.0-0.2); Basophils % 1.1 % (0.0-0.8); Eosinophils # 0.3 10*3/uL (0.0-0.87); Eosinophils % 5.2 % (0.00-10.9); Hematocrit 33.5 VOL% (42.0-52.0); Hemoglobin 9.6 GM/DL (14.0-18.0); Immature Granulocytes % 0.5 %; Immature Granulocytes Absolute 0.03 #; Lymphocytes # 0.7 10*3/uL (1.4-4.0); Lymphocytes % 11.3 % (21.2-54.2); Mean Corpuscular HGB Conc 28.7 GM/DL (32-36); Mean Corpuscular Volume 73.3 FL (87-102); Monocytes % 15.7 % (1.7-12.7); Neutrophils % 66.2 % (38.7-73.9); Platelet Count 173 T/CUMM (130-400); Red Blood Count 4.57 MC/CUMM (3.8-5.5); Red Cell Distribution Width 24.3 % (9.3-17.3); White Blood Count 6.4 T/CUMM (4-12)
[2020-01-06 06:39] LABS: Eosinophils 6 % (0-10); Hypochromasia 1+; Lymphocytes 9 % (20-55); Ovalocytes Slight; Platelet Estimate Adequate; Segmented Neutrophils 70 % (50-85); Total Cells Counted 100
[2020-01-06] MEDS: INSULIN LISPRO 100 UNIT/ML SUBCUT SCH ×4 (09:37→21:18)
[2020-01-06] MEDS: FUROSEMIDE 40 MG/4 ML VIAL IV SCH (09:39)
[2020-01-06] MEDS: FUROSEMIDE 40 MG TABLET PO SCH (11:55)
[2020-01-06] MEDS: DILTIAZEM 30 MG TABLET PO SCH ×4 (12:02→21:17)
[2020-01-06] MEDS: carvediloL 6.25 MG TABLET PO SCH ×2 (12:03→21:17)
[2020-01-06] MEDS: APIXABAN 5 MG TABLET PO SCH ×2 (12:03→21:17)
[2020-01-06] MEDS: ATORVASTATIN 40 MG TABLET PO SCH (12:04)
[2020-01-06] MEDS: CLOPIDOGREL 75 MG TABLET PO SCH (12:04)
[2020-01-06] MEDS: PANTOPRAZOLE 40 MG TABLET PO SCH (12:05)
[2020-01-06] MEDS: POTASSIUM CHLORIDE 20 MEQ TABLET PO SCH ×2 (12:05→21:18)
[2020-01-06] MEDS: AZITHROMYCIN 250 MG TABLET PO SCH (12:07)
[2020-01-06] MEDS: ASPIRIN EC 81 MG TABLET PO SCH (13:59)
[2020-01-06] MEDS: dilTIAZem Drip 125 MG/125 ML PREMIX IV SCH (18:03)
[2020-01-06] MEDS: cefTRIAXone 1,000 MG in SYRINGE 1 EACH IV SCH (21:18)
[2020-01-07 06:27] LABS: Basophils # 0.1 10*3/uL (0.0-0.2); Basophils % 1.2 % (0.0-0.8); Eosinophils # 0.4 10*3/uL (0.0-0.87); Eosinophils % 5.5 % (0.00-10.9); Hematocrit 34.6 VOL% (42.0-52.0); Immature Granulocytes % 0.4 %; Immature Granulocytes Absolute 0.03 #; Lymphocytes # 0.6 10*3/uL (1.4-4.0); Lymphocytes % 9.4 % (21.2-54.2); Mean Corpuscular HGB Conc 28.3 GM/DL (32-36); Mean Corpuscular Volume 73.5 FL (87-102); Mean Platelet Volume 11.4 FL (9.6-12.0); Monocytes % 13.1 % (1.7-12.7); Neutrophils % 70.4 % (38.7-73.9); Platelet Count 197 T/CUMM (130-400); Red Blood Count 4.71 MC/CUMM (3.8-5.5); Red Cell Distribution Width 24.3 % (9.3-17.3); White Blood Count 6.8 T/CUMM (4-12)
[2020-01-07 06:28] LABS: Hemoglobin 9.8 GM/DL (14.0-18.0)
[2020-01-07 06:29] LABS: Hypochromasia 1+; Ovalocytes Slight; Platelet Estimate Adequate
[2020-01-07 06:32] LABS: Albumin 3.5 G/DL (3.4-5.0); Bilirubin,Total 0.8 MG/DL (0.2-1.0); Calcium 8.7 MG/DL (8.5-10.1); Osmolality,Calculated 288.7 MOS/KG (273-304); Total Protein 7.1 G/DL (6.4-8.3)
[2020-01-07] MEDS: INSULIN LISPRO 100 UNIT/ML SUBCUT SCH ×2 (08:26→11:52)
[2020-01-07] MEDS: POTASSIUM CHLORIDE 20 MEQ TABLET PO SCH (09:10)
[2020-01-07] MEDS: AZITHROMYCIN 250 MG TABLET PO SCH (09:11)
[2020-01-07] MEDS: ASPIRIN EC 81 MG TABLET PO SCH (09:12)
[2020-01-07] MEDS: ATORVASTATIN 40 MG TABLET PO SCH (09:12)
[2020-01-07] MEDS: carvediloL 6.25 MG TABLET PO SCH (09:12)
[2020-01-07] MEDS: APIXABAN 5 MG TABLET PO SCH (09:13)
[2020-01-07] MEDS: CLOPIDOGREL 75 MG TABLET PO SCH (09:13)
[2020-01-07] MEDS: DILTIAZEM 30 MG TABLET PO SCH (09:13)
[2020-01-07] MEDS: PANTOPRAZOLE 40 MG TABLET PO SCH (09:15)
[2020-01-07] MEDS ORDERED: carvediloL 6.25 MG TABLET PO ONE (09:34)
[2020-01-07] MEDS ORDERED: DILTIAZEM CD 120 MG CAPSULE PO SCH (10:00)
[2020-01-07 11:47] VITALS: BP 140/82
[2020-01-07] MEDS ORDERED: carvediloL 12.5 MG TABLET PO SCH (21:00)
== END 2020-01-07 13:21 | disposition home or self-care (01) | DRG 308 ==
LOC: N.TELES
PROVIDERS: ADMIT Internal Medicine; ATTEND Internal Medicine